=== PATIENT | male | born 2000 | race Caucasian/White ===

== ENCOUNTER 2023-07-22 01:57 | Emergency (ER) | payer SELFPAY ==
[2023-07-22 02:10] VITALS: BP 147/73; PULSE 95; RESP 18; TEMP 36.9; O2SAT 100; BMI 20.8
--- NOTE | 2023-07-22 02:28 | ED.DENTAL1 ---
HPI - Dental/Oral General Chief complaint: Dental/Oral Stated complaint: TOOTH ACHE Time Seen by Provider: 07/22/23 02:22 History of Present Illness HPI Narrative: patient presents complaining of dental pain. pain for about 2 months but increased pain tonight. Throbbing pain radiating into his sabianist. points to his right posterior molar as the site of pain. No fever. No neuro symptoms. Teeth map: 1. Related Data Allergies Allergy/AdvReac Type Severity Reaction Status Date / Time No Known Drug Allergies Allergy Verified 07/22/23 02:12 Review of Systems ROS Status of ROS 10 or more systems reviewed and unremarkable except as noted in history and below PFSH PFS Social History Smoking status: Current every day smoker Exam Constitutional Vital Signs, click to edit/add: Last Vital Signs Temp 98.5 F 07/22/23 02:10 Pulse 95 H 07/22/23 02:10 Resp 18 07/22/23 02:10 BP 147/73 H 07/22/23 02:10 Pulse Ox 100 07/22/23 02:10 O2 Del Method Room Air 07/22/23 02:10 Common normals: no apparent distress, average body habitus and oriented x3 Eye Common normals: EOMs intact bilaterally and conjunctivae normal Respiratory Common normals: normal respiratory effort, no retractions, no use of accessory muscles and clear to auscultation bilaterally Cardio Common normals: regular rate, regular rhythm, S1 normal heart sound and S2 normal heart sound Extremity Common normals: normal to inspection and full ROM Neuro Common normals: oriented x3, CN's II-XII intact bilaterally, moves all extremities, no focal motor deficits and no sensory deficits noted Psych Appearance: grossly normal Course Vital Signs Vital signs: Vital Signs Temperature 98.5 F 07/22/23 02:10 Pulse Rate 95 H 07/22/23 02:10 Respiratory Rate 18 07/22/23 02:10 Blood Pressure 147/73 H 07/22/23 02:10 Pulse Oximetry 100 07/22/23 02:10 Oxygen Delivery Method Room Air 07/22/23 02:10 Temperature 98.5 F 07/22/23 02:10 Pulse Rate 95 H 07/22/23 02:10 Respiratory Rate 18 07/22/23 02:10 Blood Pressure 147/73 H 07/22/23 02:10 Pulse Oximetry 100 07/22/23 02:10 Oxygen Delivery Method Room Air 07/22/23 02:10 MDM - Dental/Oral MDM Narrative Medical decision making narrative: patient presents with worsening dental pain tooth #1. Tooth is tender. clinically suspect early dental abscess. Prescribed Amoxicillin and advised to follow up with his dentist Discharge Plan Discharge Chief Complaint: Dental/Oral Clinical Impression: Dental abscess Patient Disposition: Home, Self-Care Instructions: Dental Abscess (ED) Additional Instructions: follow up with your dentist next week Stand Alone Forms: Portal Instructions Referrals: Physician,Non-Staff, MD [Primary Care Provider] - 1 week
[2023-07-22] MEDS: AMOXICILLIN 500 MG CAPSULE 1000 MG PO (02:48)
[2023-07-22] MEDS: IBUPROFEN 400 MG TABLET 800 MG PO (02:48)
== END 2023-07-22 02:53 | disposition home or self-care (01) ==
PROVIDERS: Emergency Provider Internal Medicine; Family Provider Family Medicine
DX: K04.7 Periapical abscess without sinus (principal); F17.210 Nicotine dependence, cigarettes, uncomplicated
CPT/HCPCS: 99283

== ENCOUNTER 2023-10-28 23:12 | Emergency (ER) | payer OTHER, SELFPAY ==
[2023-10-28 23:22] VITALS: BP 158/80; PULSE 88; RESP 16; TEMP 36.8; O2SAT 100; BMI 20.1
[2023-10-28 23:42] LABS: Internal Control Within Normal Limits; Strep A Antigen Screen Negative
--- NOTE | 2023-10-29 00:24 | ED.GENADUL1 ---
HPI - General Adult General Chief complaint: Dental/Oral Stated complaint: sore throat Time Seen by Provider: 10/29/23 00:00 Source: patient Mode of arrival: walk-in Limitations: no limitations History of Present Illness HPI narrative: patient presents complaining of a sore throat for past 3-4 days. Increasing pain . Able to swallow but uncomfortable. no problem breathing. No abdominal pain or fever. Onset (ago): day(s) Related Data Home Medications Medication Instructions Recorded Confirmed No Known Home Medications 10/28/23 10/28/23 Allergies Allergy/AdvReac Type Severity Reaction Status Date / Time No Known Drug Allergies Allergy Verified 10/28/23 23:26 Review of Systems ROS Status of ROS 10 or more systems reviewed and unremarkable except as noted in history and below [facility] Social History Smoking status: Current every day smoker Exam Constitutional Vital Signs, click to edit/add: Last Vital Signs Temp 98.3 F 10/28/23 23:22 Pulse 88 10/28/23 23:22 Resp 16 10/28/23 23:22 BP 158/80 H 10/28/23 23:22 Pulse Ox 100 10/28/23 23:22 O2 Del Method Room Air 10/28/23 23:22 Common normals: no apparent distress, average body habitus, oriented x3, no limitations, healthy appearing and alert HENMS Common normals: normocephalic and head/scalp atraumatic Other: pharynx inflamed. no swelling Eye Common normals: EOMs intact bilaterally and conjunctivae normal Respiratory Common normals: normal respiratory effort, no retractions, no use of accessory muscles and clear to auscultation bilaterally Cardio Common normals: regular rate, regular rhythm, S1 normal heart sound and S2 normal heart sound GI Common normals: Normal to inspection, nondistended, normoactive bowel sounds present, soft to palpation, non-tender and no hepatosplenomegaly Extremity Common normals: normal to inspection and full ROM Neuro Common normals: oriented x3, CN's II-XII intact bilaterally, moves all extremities, no focal motor deficits and no sensory deficits noted Psych Appearance: grossly normal Course Vital Signs Vital signs: Vital Signs Temperature 98.3 F 10/28/23 23:22 Pulse Rate 88 10/28/23 23:22 Respiratory Rate 16 10/28/23 23:22 Blood Pressure 158/80 H 10/28/23 23:22 Pulse Oximetry 100 10/28/23 23:22 Oxygen Delivery Method Room Air 10/28/23 23:22 Temperature 98.3 F 10/28/23 23:22 Pulse Rate 88 10/28/23 23:22 Respiratory Rate 16 10/28/23 23:22 Blood Pressure 158/80 H 10/28/23 23:22 Pulse Oximetry 100 10/28/23 23:22 Oxygen Delivery Method Room Air 10/28/23 23:22 Medical Decision Making MDM Narrative Medical decision making narrative: patient presents with progressive pharyngitis. On exam pharynx is inflamed. Strep screen neg.Patient informed strep culture ordered. Prescribed amoxicillin as his throat exam , as above, is inflamed. Discharged home to follow up with his doctor for recheck Lab Data Labs: Lab Results 10/28/23 Range/Units 23:28 Streptococcus Screen Negative Discharge Plan Discharge Chief Complaint: Dental/Oral Clinical Impression: Pharyngitis Patient Disposition: Home, Self-Care Prescriptions / Home Meds: No Action No Known Home Medications Instructions: Pharyngitis (ED) Stand Alone Forms: Portal Instructions Referrals: Physician,Non-Staff, MD [Primary Care Provider] - 1 week
[2023-10-29] MEDS: AMOXICILLIN 500 MG CAPSULE 1000 MG PO (00:41)
== END 2023-10-29 00:50 | disposition home or self-care (01) ==
PROVIDERS: Emergency Provider Internal Medicine; Family Provider Family Medicine
DX: J02.9 Acute pharyngitis, unspecified (principal); F17.210 Nicotine dependence, cigarettes, uncomplicated
CPT/HCPCS: 87070; 87880; 99283

== ENCOUNTER 2023-11-11 16:09 | Emergency (ER) | payer OTHER, SELFPAY ==
[2023-11-11 16:12] VITALS: BP 126/82; PULSE 87; RESP 18; TEMP 36.4; O2SAT 99; BMI 20.8
--- NOTE | 2023-11-11 16:43 | XR_ITS ---
[facility] [id number] Patient Name: ALEXI KELLER MRN: [id number] date: 2000 Sex: M Assigned Patient Location: ER Current Patient Location: Accession/Order Number: [id number] Exam Date: 11/11/2023 17:00 Report Date: 11/11/2023 17:58 At the request of: SHILPI ANDERSON Procedure: XR finger RT min 2V STUDY: XR finger RT min 2V, [id number] HISTORY: injury right middle finger COMPARISON: None FINDINGS: No acute fracture, dislocation, or suspicious osseous lesion. No significant degenerative changes. XR/XR finger RT min 2V IMPRESSION: No acute osseous abnormality. Electronically authenticated by: CANDICE CARDENAS Date: 11/11/2023 17:58
--- NOTE | 2023-11-11 16:44 | ED_ITS ---
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 It caused some bleeding and when he saw the blood he passed out, falling and hitting the back of his head. Patient did not injure the neck or back. He has some tenderness to the back of the head. He also has some pain to the tip of the right middle finger. Nothing taken for the pain [employer] DES[employer]. He is mentating normally and has no neurological deficits. Related Data Home Medications Medication Instructions Recorded Confirmed No Known Home Medications 10/28/23 10/28/23 Allergies Allergy/AdvReac Type Severity Reaction Status Date / Time No Known Drug Allergies Allergy Verified 10/28/23 23:26 PFSH PFS Social History Smoking status: Current every day smoker Exam Narrative Exam Narrative: Nurses note and vital signs reviewed and patient is not hypoxic. afebrile General: The patient appears well and in no apparent distress. Patient is resting comfortably on cart. GCS = 15. Skin: Warm, dry, no pallor noted. Head: Tenderness the the occipital scalp at midline without bony stepoff. Remainder of the head and face are normocephalic, atraumatic Neck: Supple, trachea mid-line. Full ROM and no cervical spinal tenderness. The patient has no step-offs or crepitus noted Eyes: PERRLA, EOMI Cardiovascular: Regular Rate and Rhythm Respiratory: Patient is in no distress, no accessory muscle use, lungs are clear to auscultation, no wheezing, rales or rhonchi Musculoskeletal: Tenderness to the distal phalanx of the right middle finger. no additional sign of long bone fracture. Moves right fingers in all modalities with 5/5 strength. Normal rfid engineer. Neurological: A&O x4, normal equal rfid engineer strength, normal finger to nose, normal speech, normal coordination, normal motor, normal sensory. Psychiatric: Cooperative Constitutional Vital Signs, click to edit/add: Last Vital Signs Temp 97.6 F 11/11/23 16:12 Pulse 87 11/11/23 16:12 Resp 18 11/11/23 16:12 BP 126/82 11/11/23 16:12 Pulse Ox 99 11/11/23 16:12 O2 Del Method Room Air 11/11/23 16:12 Course Vital Signs Vital signs: Vital Signs Temperature 97.6 F 11/11/23 16:12 Pulse Rate 87 11/11/23 16:12 Respiratory Rate 18 11/11/23 16:12 Blood Pressure 126/82 11/11/23 16:12 Pulse Oximetry 99 11/11/23 16:12 Oxygen Delivery Method Room Air 11/11/23 16:12 Temperature 97.6 F 11/11/23 16:12 Pulse Rate 87 11/11/23 16:12 Respiratory Rate 18 11/11/23 16:12 Blood Pressure 126/82 11/11/23 16:12 Pulse Oximetry 99 11/11/23 16:12 Oxygen Delivery Method Room Air 11/11/23 16:12 Medical Decision Making MDM Narrative Medical decision making narrative: Patient given tylenol for pain and xrays right middle finger obtained - they were negative. Patient does not meet criteria for head CT. Patient discharged home with reassurance and will follow up in Occupational health. Imaging Data xr finger: My impression: no acute fracture, dislocation or foreign body of/in the middle finger Discharge Plan Discharge Chief Complaint: Head Injury Clinical Impression: Closed head injury, Contusion of finger of right hand Patient Disposition: Home, Self-Care Time of Disposition Decision: 17:17 Prescriptions / Home Meds: No Action No Known Home Medications Instructions: Head Injury (ED), Crush Injury (ED) Stand Alone Forms: Portal Instructions Referrals: [facility] [Outside] - As soon as possible
[2023-11-11] MEDS: ACETAMINOPHEN 500 MG TABLET 1000 MG PO (17:22)
[2023-11-11 17:30] VITALS: BP 102/62; PULSE 66; O2SAT 99
== END 2023-11-11 17:35 | disposition home or self-care (01) ==
PROVIDERS: Emergency Provider Emergency Medicine; Family Provider Family Medicine
DX: S09.8XXA Other specified injuries of head, initial encounter (principal); S60.031A Contusion of right middle finger without damage to nail, initial encounter; F17.210 Nicotine dependence, cigarettes, uncomplicated; W22.8XXA Striking against or struck by other objects, initial encounter; W19.XXXA Unspecified fall, initial encounter
CPT/HCPCS: 73140; 99283